=== PATIENT | female | born 1995 | race Caucasian/White ===

== ENCOUNTER 2024-06-30 19:29 | Emergency (ER) | payer OTHER ==
[~2024-06-30] VITALS: Ht 157.5 cm; Wt 100.0 kg
[2024-06-30 19:37] VITALS: O2SAT 98
[2024-06-30 22:24] VITALS: BP 115/90; PULSE 72; RESP 12; TEMP 36.66960; O2SAT 98
== END 2024-06-30 22:26 | disposition home or self-care (01) ==
LOC: ER 19:29
DX: F39 Unspecified mood [affective] disorder (principal); T50.905A Adverse effect of unspecified drugs, medicaments and biological substances, initial encounter; E78.00 Pure hypercholesterolemia, unspecified; F17.200 Nicotine dependence, unspecified, uncomplicated; F15.90 Other stimulant use, unspecified, uncomplicated; F41.9 Anxiety disorder, unspecified; X58.XXXA Exposure to other specified factors, initial encounter; Y93.89 Activity, other specified; Y92.89 Other specified places as the place of occurrence of the external cause; Y99.8 Other external cause status
CPT/HCPCS: 99283